=== PATIENT | male | born 1965 | race Caucasian/White ===

== ENCOUNTER 2022-08-07 02:37 | Emergency (ER) | payer OTHER ==
[2022-08-07] MEDS ORDERED: Ondansetron 4 MG Tab.DIS PO ONE (02:38)
[2022-08-07] MEDS ORDERED: Sodium Chloride 0.9% 1,000 ML IV ONE ×2 (02:44→03:28)
[2022-08-07] MEDS ORDERED: Ondansetron 4 MG/2 ML SDV IVPUSH ONE (02:44)
[2022-08-07] MEDS ORDERED: Sodium Chloride 0.9% 10 ML Syringe FLUSH SCH (03:00)
[2022-08-07 03:23] LABS: ANION GAP 21.6 mEq/L (7-13)
[2022-08-07 03:47] LABS: CORONAVIRUS COVID-19 NAA NEGATIVE (NEGATIVE)
[2022-08-07] MEDS ORDERED: Ondansetron 4 MG Tab.DIS ONE (04:54)
== END 2022-08-07 05:00 | disposition home or self-care (01) ==
LOC: DL.ED 02:37
DX: K52.9 Noninfective gastroenteritis and colitis, unspecified (principal); I10 Essential (primary) hypertension; Z79.899 Other long term (current) drug therapy; Z20.822 Contact with and (suspected) exposure to COVID-19
CPT/HCPCS: 0240U; 36415; 80053; 82150; 83605; 83690; 83735; 85025; 87040; 96361; 96374; 99284; A9270; J2405; J3490; J7030